=== PATIENT | female | born 1940 | race Caucasian/White ===

== ENCOUNTER 2017-06-10 16:05 | Emergency (ER) | payer MEDICARE ==
[~2017-06-10] VITALS: Wt 95.5 kg
[2017-06-10 16:15] VITALS: TEMP 98.7
[2017-06-10] MEDS ORDERED: NORVASC 5MG5 MG/TAB PO (16:21)
[2017-06-10] MEDS ORDERED: MEVACOR 20M20 MG/TAB PO (16:22)
[2017-06-10] MEDS ORDERED: ELAVIL100 MG PO (16:22)
[2017-06-10] MEDS ORDERED: ZANTAC 150MG T150 MG PO (16:23)
[2017-06-10] MEDS ORDERED: NORCO 325 MG-51 TAB PO (18:05)
[2017-06-10 18:30] VITALS: BP 137/75; PULSE 101
== END 2017-06-10 18:30 | disposition home or self-care (01) ==
LOC: COL.ER 16:05
DX: S42.292A Other displaced fracture of upper end of left humerus, initial encounter for closed fracture (principal); W18.39XA Other fall on same level, initial encounter; Y92.009 Unspecified place in unspecified non-institutional (private) residence as the place of occurrence of the external cause
CPT/HCPCS: J1885; J2405; J3010

== ENCOUNTER → 2017-11-23 | Outpatient (CLI) | payer MEDICARE ==
[~2017-11-23] MED LIST: ELAVIL100 MG PO; MEVACOR 20M20 MG/TAB PO; NORCO 325 MG-51 TAB PO; NORVASC 5MG5 MG/TAB PO; ZANTAC 150MG T150 MG PO
== END ==
LOC: COL.RAD 12:53
DX: M25.531 Pain in right wrist (principal)
CPT/HCPCS: J3301; Q9967